=== PATIENT | female | born 1995 | race African-American/Black ===

== ENCOUNTER 2023-12-31 06:36 | Emergency (ER) | payer OTHER, SELFPAY ==
--- NOTE | ~2023-12-31 | US_ITS ---
EXAMINATION: US PELVIS CLINICAL INFORMATION: Uterine mass, last menstrual period December 11, 2023 COMPARISON: CT abdomen and pelvis December 31, 2023 TECHNIQUE: Ultrasound of the pelvis is performed using both transabdominal and transvaginal transducers along with Doppler. Transvaginal imaging is performed due to inadequate visualization transabdominally. FINDINGS: The uterus is anteverted and measures 14.8 x 10.0 x 10.0 cm. 6.9 x 7.1 x 7.2 cm heterogeneous mass along the fundal aspect of the uterus. Endometrial thickness is 11 mm, although visualization of the endometrium is limited due to large fundal mass. Small amount of free fluid. Right ovary measures 3.1 x 2.9 x 1.4 cm, volume 6.5 mL and is unremarkable. Left ovary measures 3.1 x 2.5 x 2.1 cm, volume 8.9 mL. 1.7 x 1.3 x 1.7 cm complex left ovarian cyst, possibly a corpus luteum. US/US pelvic and transvaginal IMPRESSION: 7.2 cm heterogeneous fundal mass. Differential considerations include large fibroid versus other benign or malignant mass. Gynecologic consultation and possible additional imaging with MRI recommended. This study was presented today December 31, 2023 for interpretation. Stat results provided at this time as requested by referring provider. Electronically signed by: Regina Ferraro MD 12/31/2023 12:51 PM EDT
--- NOTE | ~2023-12-31 | XR_ITS ---
EXAMINATION: XR CHEST CLINICAL INFORMATION: Near syncope COMPARISON: None available. TECHNIQUE: Frontal view of the chest was obtained. FINDINGS: No significant abnormality is noted involving the heart, lungs, mediastinum, bony thorax or soft tissues. XR/XR chest 1V IMPRESSION: Unremarkable examination. Electronically signed by: Leidy Gibson MD 12/31/2023 04:44 PM EDT
--- NOTE | ~2023-12-31 | CT_ITS ---
EXAMINATION: CT ABDOMEN AND PELVIS WITH CONTRAST CLINICAL INFORMATION: Abdominal pain COMPARISON: None available. TECHNIQUE: Multidetector volumetric images were obtained from the superior aspect of the liver through the pubic symphysis following administration 85 mL of Omnipaque 350 intravenous contrast. Sagittal and coronal reformatted images were obtained on the technologist's workstation. Oral contrast: No This CT examination was performed using dose optimization techniques as appropriate, variously including the following: *Automated exposure control *Adjustment of mA and/or kV according to patient size (this includes techniques or standardized protocols for targeted exams where dose is matched to indication/reason for exam; i.e. extremities or head) *Use of iterative reconstruction technique DLP: 739 mGy-cm FINDINGS: LUNG BASES: The visualized lung bases are unremarkable. LIVER, GALLBLADDER, AND BILIARY TREE: There is a 3 mm too small to characterize focus in the anterior right lobe of the liver. It is probably a tiny cyst. Liver otherwise unremarkable. No suspicious masses. No intrahepatic biliary dilatation. The gallbladder is unremarkable with no evidence of radiopaque gallstones, gallbladder wall thickening, or obvious pericholecystic inflammatory changes. PANCREAS: Unremarkable. SPLEEN: Unremarkable. ADRENAL GLANDS: Unremarkable. KIDNEYS AND URETERS: The kidneys are normal in size, shape, and attenuation. No hydronephrosis, hydroureter, or calculi seen. No perinephric stranding. BLADDER: Unremarkable. GASTROINTESTINAL TRACT: No bowel obstruction or right or left lower quadrant inflammatory change. The vermiform appendix is not seen. ABDOMINAL WALL: No significant hernia is appreciated. LYMPH NODES: Normal. VASCULAR: Unremarkable. PELVIC VISCERA: Abnormal. The uterus is abnormal. There is a mixed density fundal mass filling the endometrial cavity, at 8 x 6.5 cm. This needs to be further evaluated. Neoplasm needs to be excluded although a large degenerated necrotic fibroid could have a similar appearance. BOTTLER evaluation is advised. There is trace fluid in the cul-de-sac. Adnexal regions unremarkable. OSSEOUS STRUCTURES: Unremarkable. CT/CT abdomen pelvis w IV con IMPRESSION: Abnormal uterus. Large endometrial mass. BOTTLER evaluation is advised. Fleischner guidelines were followed. Electronically signed by: Natanael Guerra MD 12/31/2023 09:50 AM EDT
[2023-12-31 06:48] VITALS: BP 129/73; PULSE 121; RESP 16; TEMP 36.4; O2SAT 98; BMI 30.4
--- NOTE | 2023-12-31 06:56 | ED_ITS ---
HPI - General Adult General Chief complaint: Abdominal Pain Stated complaint: multiple complaints Time Seen by Provider: 12/31/23 06:41 Source: patient Mode of arrival: ambulatory Limitations: no limitations History of Present Illness ED Provider: Nancy Espino PA-C HPI narrative: Patient is a 28 year old assigned female at with no reported medical history presenting to the emergency department today with lower abdominal pain. Patient states that over the last 4 days she has had lower abdominal pain. Patient states that her LMP was 12/11/2023 and was normal. Patient states that yesterday she had a moment of feeling like she was going to pass out. Patient denies any vaginal bleeding, vaginal discharge, dizziness, lightheadedness, abdominal pain, nausea, vomiting, fever, chills, blurry vision, double vision, loss of vision, chest pain, difficulty breathing, shortness of breath, back pain, night sweats, pain with urination, increased urinary frequency, increased urinary urgency, blood in her urine or stool, syncope, recent trauma or falls, bowel incontinence, bladder incontinence, or any other complaints at this time. Onset (ago): day(s) Relieving factors: none Exacerbating factors: none Associated symptoms: denies other symptoms Treatments prior to arrival: none Related Data Previous Rx's ?Medication ?Instructions ?Recorded doxycycline hyclate 100 mg tablet 100 mg PO BID 7 days #14 tabs 12/31/23 fluconazole 150 mg tablet 150 mg PO Q3D 1 dose #1 tab 12/31/23 metronidazole 500 mg tablet 500 mg PO BID 7 days #14 tabs 12/31/23 Allergies Allergy/AdvReac Type Severity Reaction Status Date / Time No Known Allergies Allergy Verified 12/31/23 06:51 Review of Systems 2 Constitutional: Constitutional: Reports no additional constitutional complaints, Denies chills, Denies fever(s) and Denies night sweats Eyes: Eyes: Reports no additional eye complaints, Denies blurry vision, Denies change in vision, Denies diplopia, Denies eye discharge, Denies loss of vision and Denies eye pain ENT: Denies dizziness Cardiovascular: Cardiovascular: Reports no additional cardiovascular complaints, Denies chest pain, Denies lightheadedness, Denies Loss of Consciousness and Denies dyspnea Respiratory: Respiratory: Reports no additional respiratory complaints and Denies dyspnea Gastrointestinal: Gastrointestinal: Reports no additional gastrointestinal complaints, Reports abdominal pain, Denies melena, Denies hematochezia, Denies change in bowel habits and Denies change in stool character Genitourinary: Genitourinary: Denies hematuria, Denies urinary frequency, Denies dysuria, Denies urinary incontinence, Denies urinary hesitancy and Denies urinary urgency Musculoskeletal: Musculoskeletal: Reports no additional musculoskeletal complaints, Denies numbness and Denies tingling Neurologic: Denies dizziness, Denies loss of vision, Denies numbness and Denies tingling Comments: near syncope Psychiatric: Psychiatric: Reports no additional psychiatric complaints Endocrine: Endocrine: Reports no additional endocrine complaints Hematologic/Lymphatic: Hematologic/Lymphatic: Reports no additional hematologic/lymphatic complaints Allergic/Immunologic: Allergic/Immunologic: Reports no additional allergic/immunologic complaints PMFSH Past Medical History Attestation statement: The following information was validated with the patient. Source: old records reviewed and nursing notes reviewed Physical Exam ED Vital Signs: Vital Signs - 24 hr 12/31/23 10:29 12/31/23 11:47 12/31/23 12:00 Temperature 100.4 F 98.3 F 98.8 F Pulse Rate 108 H 102 H 101 H Respiratory Rate 18 16 12 Blood Pressure 120/80 114/63 100/57 L Pulse Oximetry 99 100 99 Oxygen Delivery Method Room Air Room Air Room Air 12/31/23 14:31 12/31/23 14:57 Temperature 98.3 F 98.3 F Pulse Rate 112 H 112 H Respiratory Rate 14 14 Blood Pressure 119/71 119/71 Pulse Oximetry 99 99 Oxygen Delivery Method Room Air Room Air BMI result Body Mass Index 30.4 Const General: cooperative, no acute distress, alert and awake Nutritional Appearance: well nourished Orientation/consciousness: patient oriented x3 Limitations: no limitations [facility] Head: Yes normal to inspection and Yes atraumatic Ears: hearing grossly normal bilaterally and external ears normal General nose exam: Normal external nose present, no nasal discharge noted and no epistaxis Face and sinus: Yes normal facial exam, No abrasion and No laceration Mouth: Normal oral and palatal mucosa present, no drooling and no muffled voice Eyes General: appearance normal, both eyes and all related structures Periorbital: periorbital findings normal Eyelids: Yes eyelids normal Conjunctivae: conjunctivae normal Pupils: Equal, round and reactive pupils present EOM: EOMs intact bilaterally Neck Neck: Yes normal visual inspection, Yes full ROM and Yes no lymphadenopathy Chest Chest palpation & inspection: normal inspection of the chest Resp Effort & Inspection: normal respiratory effort and able to speak in complete sentences GI Inspection: Yes normal to inspection Neuro General: patient oriented x3 and moves all extremities Cranial nerves: Yes Equal, round and reactive pupils present Cognition (Neuro): normal cognition Extrem General: Yes normal to inspection, Yes full ROM and Yes capillary refill normal Psych Appearance: grossly normal Mental Status: mental status grossly normal Affect: normal affect Attitude: cooperative Thought process: Normal thought process present Thought content: Normal thought content present Insight: Good insight present (Psych) Medications Administered Discontinued Medications Generic Name Dose Route Start Last Admin Trade Name Freq PRN Reason Stop Dose Admin Doxycycline Monohydrate 100 mg 12/31/23 13:42 12/31/23 14:29 Doxycycline Monohydrate 100 Mg Capsule PO 12/31/23 13:43 100 mg ONCE ONE Administration Fluconazole 150 mg 12/31/23 13:42 12/31/23 14:29 Fluconazole 150 Mg Tablet PO 12/31/23 13:43 150 mg ONCE ONE Administration Sodium Chloride 1,000 mls @ 999 mls/hr 12/31/23 07:15 12/31/23 09:33 Ns IV 12/31/23 08:15 Infused .Q1H1M EUNICE Infusion Sodium Chloride 1,000 mls @ 999 mls/hr 12/31/23 10:30 12/31/23 12:35 Ns IV 12/31/23 11:30 Infused .Q1H1M EUNICE Infusion Ceftriaxone Sodium 1 gm/ 50 mls @ 100 mls/hr 12/31/23 13:42 12/31/23 14:29 Sodium Chloride IV 12/31/23 14:11 100 mls/hr ONCE ONE Administration Iohexol 100 ml 12/31/23 08:51 12/31/23 08:52 Iohexol 350 Mg/Ml 100 Ml Infus..Btl IV 12/31/23 08:52 85 ml ONCE ONE Administration Ketorolac Tromethamine 15 mg 12/31/23 10:30 12/31/23 10:37 Ketorolac Tromethamine 15 Mg/Ml Vial IVPUSH 12/31/23 10:31 15 mg ONCE ONE Administration Metronidazole 500 mg 12/31/23 13:42 12/31/23 14:29 Metronidazole 500 Mg Tablet PO 12/31/23 13:43 500 mg ONCE ONE Administration Morphine Sulfate 4 mg 12/31/23 07:03 12/31/23 07:27 Morphine Sulfate 4 Mg/Ml Cartridge IVPUSH 12/31/23 07:04 4 mg ONCE ONE Administration Protocol Ondansetron HCl 4 mg 12/31/23 07:03 12/31/23 07:27 Ondansetron Hcl 4 Mg/2 Ml Vial IVPUSH 12/31/23 07:04 4 mg ONCE ONE Administration Medical Decision Making Medical Decision Making [facility] Narrative: Patient is a 28 year old assigned female at with no reported medical history presenting to the emergency department today with abdominal pain and feeling as though she was going to pass out. Patient's physical exam was unremarkable. Patient's blood work showed an elevated WBC count of 16.6 but were otherwise unremarkable. Patient's urine showed no acute process. Patient's EKG was unremarkable. Patient's chest x-ray showed no acute process. Patient's CT abd/pelvis showed a large mass vs. fibroid in the uterus. I obtained an ultrasound that re-demonstrated the uterine mass and identified it as a mass vs. fibroid. Patient's clinical presentation is not consistent with sepsis (@1530). I consulted with Dr. Espinal who came and examined the patient. He recommended out patient follow up and treating for PID given the patient's clinical presentation and work up. I explained my physical exam findings as well as all test results to the patient. I answered all questions asked by the patient. I stressed the importance of the patient taking her medication as directed (either prescribed or as the over the counter packaging recommends). I stressed the importance of the patient following up with her primary care provider and an OBGYN. I stressed the importance of the patient returning to the emergency department immediately if her symptoms were to worsen or if she were to develop any dizziness, shortness of breath, difficulty breathing, chest pain, blurry vision, loss of vision, nausea, vomiting, abdominal pain, fever, chills, back pain, or any other complaints. Patient verbalized agreement and understanding with this treatment plan and discharge. Differential Diagnosis Differential Diagnoses: The differential diagnosis associated with the presentation includes Abdominal pain PID Uterine mass Admission/Observation Consideration of admission/observation: Escalation of care including admission/observation considered Patient would have been admitted to the hospital had her work up had any findings where hospital admission was appropriate and her clinical presentation warranted hospital admission. Consult Healthcare Provider Management of the patient was discussed with: Advertising Sales Executive (consulted with Dr. Espinal as noted in the MDM Rationale portion of the note. ) Lab Data [facility] Lab Attestation statement: I reviewed the patient's lab results. My interpretation of these results are in the MDM Rationale portion of this note. 12/31/23 07:26 12/31/23 07:26 Labs: Lab Results 12/31/23 12/31/23 12/31/23 Range/Units 07:26 07:33 08:57 WBC 16.6 H (4.8-10.8) X10*3/uL RBC 4.54 (4.20-5.50) X10*6/uL Hgb 12.3 (12.0-16.0) g/dl Hct 37.4 (37.0-47.0) % MCV 82.4 (80.0-98.0) fL MCH 27.1 (27.0-33.0) pg MCHC 32.9 (31.0-35.0) g/dl RDW 13.9 (11.0-16.0) % Plt Count 196 (160-400) X10*3/uL MPV 10.1 (9.4-12.3) fL Immature Gran % (Auto) 0.5 H (0.0-0.4) % Neut % (Auto) 80.1 H (45-73) % Lymph % (Auto) 7.2 L (20-40) % [place] % (Auto) 12.0 H (2-11) % Eos % (Auto) 0.1 (0-4) % Baso % (Auto) 0.1 (0-2) % Lymph # (Auto) 1.2 (1.2-4.9) X10*3/uL [place] # (Auto) 2.0 H (0.1-1.2) X10*3/uL Eos # (Auto) 0.0 (0.0-0.4) X10*3/uL Baso # (Auto) 0.0 (0.0-0.2) X10*3/uL Abs Immat Gran (auto) 0.09 H (0.00-0.03) X10*3/uL Absolute Neuts (auto) 13.3 H (2.0-8.3) x10*3/uL Absolute Nucleated RBC 0.000 (0.0-0.012) X10*3/uL Nucleated RBC % (auto) 0.0 (0.0-0.2) /100WBC Smear Tech's Comments VERIFIED Sodium 136 (135-145) mmol/L Potassium 3.8 (3.3-5.1) mmol/L Chloride 105 (96-108) mmol/L Carbon Dioxide 23 (22-29) mmol/L Anion Gap 12 (12-20) BUN 6 L (9-16) mg/dL Creatinine 0.76 (0.5-1.4) mg/dL Estim Creat Clear Calc 129.8 Estimated GFR > 60 Random Glucose 108 (60-115) mg/dL Calcium 8.9 (8.4-10.2) mg/dL Total Bilirubin 0.5 (0.0-1.0) mg/dL AST 24 (5-31) U/L ALT 15 (0-31) U/L Alkaline Phosphatase 63 (39-117) U/L Total Protein 7.5 (6.5-8.0) g/dL Albumin 3.9 (3.5-5.0) g/dL Beta HCG, Quant < 2 mIU/mL Urine Color Yellow Urine Appearance Clear Urine pH 7.5 (5.0-9.0) Ur Specific [place] >= 1.030 H (1.005-1.025) Urine Protein Trace (Neg-Trace) mg/dL Urine Glucose (UA) Negative (Negative) mg/dL Urine Ketones Negative (Negative) mg/dL Urine Blood Negative (Negative) Urine Nitrite Negative (Negative) Ur Leukocyte Esterase Negative (Negative) T.pallidum Ab (EIA) (Nonreactive) Chlam trachomat DNA PCR (Not Detect.) COVID-19 (RYDER) Negative (Negative) COVID-19 Clin Com See Note Hepatitis A IgM Ab (Nonreactive) Hep Bs Antigen (Negative) Hep Bs Antibody (Nonreactive) Hep B Core Total Ab (Nonreactive) Hepatitis C Ab (EIA) (Nonreactive) HIV 1&2 Ab/P24 Ag 4thGn (Nonreactive) Influenza Type A (MITCHELL) Negative (Negative) Influenza Type B (MITCHELL) Negative (Negative) Influenza A & B Note See Note N.gonorrhoeae DNA (PCR) (Not Detect.) T. vaginalis (PCR) (Not Detect) Bact Vaginosis (PCR) (Negative) C. krusei/glabrata (PCR) (Not Detect) Laurence group (PCR) (Not Detect) 12/31/23 Range/Units 14:37 WBC (4.8-10.8) X10*3/uL RBC (4.20-5.50) X10*6/uL Hgb (12.0-16.0) g/dl Hct (37.0-47.0) % MCV (80.0-98.0) fL MCH (27.0-33.0) pg MCHC (31.0-35.0) g/dl RDW (11.0-16.0) % Plt Count (160-400) X10*3/uL MPV (9.4-12.3) fL Immature Gran % (Auto) (0.0-0.4) % Neut % (Auto) (45-73) % Lymph % (Auto) (20-40) % [place] % (Auto) (2-11) % Eos % (Auto) (0-4) % Baso % (Auto) (0-2) % Lymph # (Auto) (1.2-4.9) X10*3/uL [place] # (Auto) (0.1-1.2) X10*3/uL Eos # (Auto) (0.0-0.4) X10*3/uL Baso # (Auto) (0.0-0.2) X10*3/uL Abs Immat Gran (auto) (0.00-0.03) X10*3/uL Absolute Neuts (auto) (2.0-8.3) x10*3/uL Absolute Nucleated RBC (0.0-0.012) X10*3/uL Nucleated RBC % (auto) (0.0-0.2) /100WBC Smear Tech's Comments Sodium (135-145) mmol/L Potassium (3.3-5.1) mmol/L Chloride (96-108) mmol/L Carbon Dioxide (22-29) mmol/L Anion Gap (12-20) BUN (9-16) mg/dL Creatinine (0.5-1.4) mg/dL Estim Creat Clear Calc Estimated GFR Random Glucose (60-115) mg/dL Calcium (8.4-10.2) mg/dL Total Bilirubin (0.0-1.0) mg/dL AST (5-31) U/L ALT (0-31) U/L Alkaline Phosphatase (39-117) U/L Total Protein (6.5-8.0) g/dL Albumin (3.5-5.0) g/dL Beta HCG, Quant mIU/mL Urine Color Urine Appearance Urine pH (5.0-9.0) Ur Specific [place] (1.005-1.025) Urine Protein (Neg-Trace) mg/dL Urine Glucose (UA) (Negative) mg/dL Urine Ketones (Negative) mg/dL Urine Blood (Negative) Urine Nitrite (Negative) Ur Leukocyte Esterase (Negative) T.pallidum Ab (EIA) Nonreactive (Nonreactive) Chlam trachomat DNA PCR NOT DETECTED (Not Detect.) COVID-19 (RYDER) (Negative) COVID-19 Clin Com Hepatitis A IgM Ab Nonreactive (Nonreactive) Hep Bs Antigen Negative (Negative) Hep Bs Antibody REACTIVE (Nonreactive) Hep B Core Total Ab Nonreactive (Nonreactive) Hepatitis C Ab (EIA) Nonreactive (Nonreactive) HIV 1&2 Ab/P24 Ag 4thGn Nonreactive (Nonreactive) Influenza Type A (MITCHELL) (Negative) Influenza Type B (MITCHELL) (Negative) Influenza A & B Note N.gonorrhoeae DNA (PCR) NOT DETECTED (Not Detect.) T. vaginalis (PCR) NOT DETECTED (Not Detect) Bact Vaginosis (PCR) NEGATIVE (Negative) C. krusei/glabrata (PCR) NOT DETECTED (Not Detect) Laurence group (PCR) DETECTED A (Not Detect) Independent Interpretation I performed an independent interpretation of an: EKG, Plain X-Ray, Ultrasound and CT Scan Interpretation: My interpretation is in agreement with the radiologist's impression of these imaging studies. L EXAMINATION: CT ABDOMEN AND PELVIS WITH CONTRAST CLINICAL INFORMATION: Abdominal pain COMPARISON: None available. TECHNIQUE: Multidetector volumetric images were obtained from the superior aspect of the liver through the pubic symphysis following administration 85 mL of Omnipaque 350 intravenous contrast. Sagittal and coronal reformatted images were obtained on the technologist's workstation. Oral contrast: No This CT examination was performed using dose optimization techniques as appropriate, variously including the following: *Automated exposure control *Adjustment of mA and/or kV according to patient size (this includes techniques or standardized protocols for targeted exams where dose is matched to indication/reason for exam; i.e. extremities or head) *Use of iterative reconstruction technique DLP: 739 mGy-cm FINDINGS: LUNG BASES: The visualized lung bases are unremarkable. LIVER, GALLBLADDER, AND BILIARY TREE: There is a 3 mm too small to characterize focus in the anterior right lobe of the liver. It is probably a tiny cyst. Liver otherwise unremarkable. No suspicious masses. No intrahepatic biliary dilatation. The gallbladder is unremarkable with no evidence of radiopaque gallstones, gallbladder wall thickening, or obvious pericholecystic inflammatory changes. PANCREAS: Unremarkable. SPLEEN: Unremarkable. ADRENAL GLANDS: Unremarkable. KIDNEYS AND URETERS: The kidneys are normal in size, shape, and attenuation. No hydronephrosis, hydroureter, or calculi seen. No perinephric stranding. BLADDER: Unremarkable. GASTROINTESTINAL TRACT: No bowel obstruction or right or left lower quadrant inflammatory change. The vermiform appendix is not seen. ABDOMINAL WALL: No significant hernia is appreciated. LYMPH NODES: Normal. VASCULAR: Unremarkable. PELVIC VISCERA: Abnormal. The uterus is abnormal. There is a mixed density fundal mass filling the endometrial cavity, at 8 x 6.5 cm. This needs to be further evaluated. Neoplasm needs to be excluded although a large degenerated necrotic fibroid could have a similar appearance. CUT OUT PRESS OPERATOR evaluation is advised. There is trace fluid in the cul-de-sac. Adnexal regions unremarkable. OSSEOUS STRUCTURES: Unremarkable. CT/CT abdomen pelvis w IV con IMPRESSION: Abnormal uterus. Large endometrial mass. CUT OUT PRESS OPERATOR evaluation is advised. Fleischner guidelines were followed. Electronically signed by: Natanael Guerra MD 12/31/2023 09:50 AM EDT Dictated By: Natanael Guerra MD Signed By: Electronically signed by Natanael Guerra MD 12/31/23 0950 L EXAMINATION: US PELVIS CLINICAL INFORMATION: Uterine mass, last menstrual period December 11, 2023 COMPARISON: CT abdomen and pelvis December 31, 2023 TECHNIQUE: Ultrasound of the pelvis is performed using both transabdominal and transvaginal transducers along with Doppler. Transvaginal imaging is performed due to inadequate visualization transabdominally. FINDINGS: The uterus is anteverted and measures 14.8 x 10.0 x 10.0 cm. 6.9 x 7.1 x 7.2 cm heterogeneous mass along the fundal aspect of the uterus. Endometrial thickness is 11 mm, although visualization of the endometrium is limited due to large fundal mass. Small amount of free fluid. Right ovary measures 3.1 x 2.9 x 1.4 cm, volume 6.5 mL and is unremarkable. Left ovary measures 3.1 x 2.5 x 2.1 cm, volume 8.9 mL. 1.7 x 1.3 x 1.7 cm complex left ovarian cyst, possibly a corpus luteum. US/US pelvic and transvaginal IMPRESSION: 7.2 cm heterogeneous fundal mass. Differential considerations include large fibroid versus other benign or malignant mass. Gynecologic consultation and possible additional imaging with MRI recommended. This study was presented today December 31, 2023 for interpretation. Stat results provided at this time as requested by referring provider. Electronically signed by: Regina Ferraro MD 12/31/2023 12:51 PM EDT RP Dictated By: Regina Ferraro MD Signed By: Electronically signed by Regina Ferraro MD 12/31/23 1251 L EXAMINATION: XR CHEST CLINICAL INFORMATION: Near syncope COMPARISON: None available. TECHNIQUE: Frontal view of the chest was obtained. FINDINGS: No significant abnormality is noted involving the heart, lungs, mediastinum, bony thorax or soft tissues. XR/XR chest 1V IMPRESSION: Unremarkable examination. Electronically signed by: Leidy Gibson MD 12/31/2023 04:44 PM EDT RP Dictated By: Leidy Gibson MD Signed By: Electronically signed by Leidy Gibson MD 12/31/23 1644 L Vent. Rate: 104 BPM Atrial Rate: 104 BPM P-R Int: 134 ms QRS Dur: 070 ms QT Int: 314 ms P-R-T Axes:: 051 030 015 degrees QTc Int: 412 ms Sinus tachycardia Otherwise normal ECG No previous ECGs available Electronically Signed By:GEORGIE HERNANDEZ Dictated By: Georgie Darby DO Signed By: Electronically signed by Georgie Darby DO 12/31/23 1608 Radiology Impression Discussion of test interpretation with radiology: I have reviewed the radiologist's reading. Prescription Management I considered prescription management with: Antibiotic (patient prescribed antibiotic for PID) Critical Care Time Critical Care Time Critical Care Time: Yes Total Critical Care Time: 47 Attestation: I spent 47 minutes of Critical Care Time with this patient. This does not include time spent on separately reported billable procedures. Discharge Plan Discharge Clinical Impression: Uterine mass, PID (acute pelvic inflammatory disease) Patient Disposition: Home, Self-Care Instructions: Pelvic Inflammatory Disease (DC) Additional Instructions: Take your antibiotics as prescribed. Follow up with your primary care provider and an OBGYN (for further work up of your uterine mass). Return to the emergency department immediately if your symptoms worsen or if you develop any dizziness, shortness of breath, difficulty breathing, chest pain, blurry vision, loss of vision, nausea, vomiting, abdominal pain, fever, chills, back pain, or any other complaints. APPOINTMENT WITH DR. ESPINAL: [address] [facility] [address] (5TH FLOOR) Saturday AT 1PM [phone] Prescriptions: New fluconazole 150 mg tablet 150 mg PO Q3D Qty: 1 0RF Rx Instructions: Take on 01/03/2024 doxycycline hyclate 100 mg tablet 100 mg PO BID 7 Days Qty: 14 0RF metronidazole 500 mg tablet 500 mg PO BID 7 Days Qty: 14 0RF Referrals: [facility] [place] [facility] [Provider Group] (Call to establish and follow up with a primary care provider. If you already have a primary care provider, please follow up with them.) [facility] [place] Primary Care, [place] [Provider Group] (Call to establish and follow up with a primary care provider. If you already have a primary care provider, please follow up with them.) [facility] [place] Primary [facility],[place] [Provider Group] (Call to establish and follow up with a primary care provider. If you already have a primary care provider, please follow up with them.) David Espinal MD [Physician] - (Call to establish and follow up with an OBGYN. ) Interventions: ED Discharge Assessment Last Done: 12/31/23 14:57 Discharge Date/Time: 12/31/23 14:57 Print Language: Israeli
[2023-12-31] MEDS: ondansetron HCL 4 MG/2 ML VIAL IVPUSH (07:27)
[2023-12-31] MEDS: Morphine Sulfate 4 MG/ML CARTRIDGE IVPUSH (07:27)
[2023-12-31] MEDS: 0.9 % Sodium Chloride 1,000 ML 999 ML IV ×2 (07:27→10:37)
[2023-12-31 07:34] LABS: Basophils Percent Auto 0.1 % (0-2); Eosinophils Percent Auto 0.1 % (0-4); Hematocrit 37.4 % (37.0-47.0); Hemoglobin 12.3 g/dl (12.0-16.0); Imm Gran Abs Auto 0.09 X10*3/uL (0.00-0.03); Imm Gran Pct Auto 0.5 % (0.0-0.4); Lymphocytes Absolute Auto 1.2 X10*3/uL (1.2-4.9); Lymphocytes Percent Auto 7.2 % (20-40); MANUAL DIFF FLAG SCAN; Mean Corpuscular HGB Conc 32.9 g/dl (31.0-35.0); Mean Corpuscular Hemoglobin 27.1 pg (27.0-33.0); Mean Corpuscular Volume 82.4 fL (80.0-98.0); Mean Platelet Volume 10.1 fL (9.4-12.3); Neutrophils Absolute Auto 13.3 x10*3/uL (2.0-8.3); Neutrophils Percent Auto 80.1 % (45-73); Platelet Count 196 X10*3/uL (160-400); Red Blood Count 4.54 X10*6/uL (4.20-5.50); Red Cell Distribution Width 13.9 % (11.0-16.0); SCAN SMEAR FLAG 1; White Blood Count 16.6 X10*3/uL (4.8-10.8)
[2023-12-31 07:51] LABS: Alanine Aminotransferase 15 U/L (0-31); Albumin Level 3.9 g/dL (3.5-5.0); Alkaline Phosphatase 63 U/L (39-117); Anion Gap 12 (12-20); Aspartate Amino Transferase 24 U/L (5-31); Bilirubin Total 0.5 mg/dL (0.0-1.0); Blood Urea Nitrogen 6 mg/dL (9-16); Calcium 8.9 mg/dL (8.4-10.2); Carbon Dioxide 23 mmol/L (22-29); Chloride 105 mmol/L (96-108); Creatinine Clr Calc Pharmacy 129.8; Estimated Glomerular Filt Rate > 60; Glucose Random 108 mg/dL (60-115); Potassium 3.8 mmol/L (3.3-5.1); Sodium 136 mmol/L (135-145); Total Protein 7.5 g/dL (6.5-8.0)
[2023-12-31 08:00] LABS: HCG Quantitative < 2 mIU/mL
[2023-12-31 08:03] LABS: SLIDE REVIEW VERIFIED
[2023-12-31 08:07] LABS: COVID-19 Test Negative (Negative); IDNOW Serial# 08D9AD1C
[2023-12-31 08:08] LABS: IDNOW Serial# 152EDE1D
[2023-12-31 08:09] LABS: Influenza A Negative (Negative); Influenza B2 Negative (Negative)
[2023-12-31] MEDS: iohexoL 350 MG/ML 100 ML INFUS..BTL IV (08:52)
[2023-12-31 09:10] LABS: Appearance Urine Clear; Color Urine Yellow; Glucose Urine UA Negative (Negative); Leukocyte Esterase Urine Negative (Negative); Nitrite Urine Negative (Negative); PH 7.5 (5.0-9.0); Specific Gravity - Urine >= 1.030 (1.005-1.025); Urine Blood Negative (Negative); Urine Ketones Negative (Negative); Urine Protein Trace mg/dL (Neg-Trace)
[2023-12-31 10:29] VITALS: BP 120/80; PULSE 108; RESP 18; TEMP 38; O2SAT 99
[2023-12-31] MEDS: Ketorolac Tromethamine 15 MG/ML VIAL IVPUSH (10:37)
--- NOTE | 2023-12-31 10:39 | PC.NURSE ---
patient noted to have fever, provider notified, medicated per MAR. patient describes her pain to be in her lower abd, 8/10 and comes and goes, patient also endorses pain in her butt, described as sharp.
[2023-12-31 11:47] VITALS: BP 114/63; PULSE 102; RESP 16; TEMP 36.8; O2SAT 100
--- NOTE | 2023-12-31 11:56 | PC.NURSE ---
patient now afebrile, has pain control leveled a 3/10. patient resting quietly in ED bed, respirations equal and unlabored, skin dry and intact. patient awaiting u/s results
[2023-12-31 12:00] VITALS: BP 100/57; PULSE 101; RESP 12; TEMP 37.1; O2SAT 99
--- NOTE | 2023-12-31 13:07 | P.CONOB_ITS ---
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 The patient gives a history of a new recent sexual partner. HCG done in the emergency room was less than 2, H&H within normal, UA within normal, CT scan and pelvic ultrasound done a see results cc:: CC: OB [facility] Social History Social History Advance Directives: No Advance Directives Information Provided: Yes Do you have a plan to hurt others: No Plan Patient : No Meds Allergies Allergy/AdvReac Type Severity Reaction Status Date / Time No Known Allergies Allergy Verified 12/31/23 06:51 CERTIFIED FORKLIFT OPERATOR Physical Exam Vitals Vital signs: Temp Pulse Resp BP Pulse Ox O2 Del Method 98.8 F 101 H 12 100/57 L 99 Room Air 12/31/23 12:00 12/31/23 12:00 12/31/23 12:00 12/31/23 12:00 12/31/23 12:00 12/31/23 12:00 BMI result Body Mass Index 30.4 Abdomen Auscultation/Inspection/Palpation: Soft and Tenderness (Mild lower pelvic tenderness no guarding and no rebound) Female Genitalia (Pelvic) Vagina: Nontender Cervix: Cervical motion tenderness Uterus: Enlarged and Tender Adnexa/Parametria: Adnexal Tenderness: Bilateral CERTIFIED FORKLIFT OPERATOR - Results Labs 12/31/23 07:26 12/31/23 07:26 Labs: Short CBC 12/31/23 Range/Units 07:26 WBC 16.6 H (4.8-10.8) X10*3/uL Hgb 12.3 (12.0-16.0) g/dl Hct 37.4 (37.0-47.0) % Plt Count 196 (160-400) X10*3/uL BMP 12/31/23 07:26 Sodium 136 Potassium 3.8 Chloride 105 Carbon Dioxide 23 BUN 6 L Creatinine 0.76 Calcium 8.9 Liver Function 12/31/23 Range/Units 07:26 Total Bilirubin 0.5 (0.0-1.0) mg/dL AST 24 (5-31) U/L ALT 15 (0-31) U/L Alkaline Phosphatase 63 (39-117) U/L Albumin 3.9 (3.5-5.0) g/dL Urine 12/31/23 Range/Units 08:57 Urine Color Yellow Urine Appearance Clear Urine pH 7.5 (5.0-9.0) Ur Specific [place] >= 1.030 H (1.005-1.025) Urine Protein Trace (Neg-Trace) mg/dL Urine Glucose (UA) Negative (Negative) mg/dL Imaging CT scan - pelvis: Radiologist's impression: ITS Impressions Abdomen/Pelvis CT 12/31/23 08:32 IMPRESSION: Abnormal uterus. Large endometrial mass. CERTIFIED FORKLIFT OPERATOR evaluation is advised. Fleischner guidelines were followed. Electronically signed by: Natanael Guerra MD 12/31/2023 09:50 AM EDT RP Pelvic/Transvag US 12/31/23 10:55 IMPRESSION: 7.2 cm heterogeneous fundal mass. Differential considerations include large fibroid versus other benign or malignant mass. Gynecologic consultation and possible additional imaging with MRI recommended. This study was presented today December 31, 2023 for interpretation. Stat results provided at this time as requested by referring provider. Electronically signed by: Regina Ferraro MD 12/31/2023 12:51 PM EDT RP Assessment and Plan (1) Uterine mass: Status: Acute Discussed with the patient differential diagnosis of her uterine/endometrial mass findings on CT scan and ultrasound with evidence of necrosis including but not limited to uterine myoma, Nico sarcoma, endometrial malignancy and others, recommended follow-up in the office for endometrial biopsy and MRI imaging for more evaluation (2) PID (acute pelvic inflammatory disease): Status: Acute Urine test done in the emergency room was negative. GC and chlamydia with BV panel and Trichomonas taken. Recommend to AMBER Arriaza the following: STD screen including hepatitis-B surface antigen, HIV, syphilis screen, hep C antibody . Treat with [facility] outpatient regimen for PID with ceftriaxone 500 mg IM x1, doxycycline 100 mg p.o. b.i.d. with Flagyl 500 mg p.o. b.i.d. for 14 days. Instructions given the patient to call or go to emergency room in case of fever equal or above 100.4, persistent or worsening of her abdominal/pelvic pain, nausea or vomiting and to schedule a 1 week follow-up appointment
--- NOTE | 2023-12-31 13:12 | ECG_ITS ---
Test Reason : NEAR SYNCOPE Blood Pressure : / mmHG Vent. Rate : 104 BPM Atrial Rate : 104 BPM P-R Int : 134 ms QRS Dur : 070 ms QT Int : 314 ms P-R-T Axes : 051 030 015 degrees QTc Int : 412 ms Sinus tachycardia Otherwise normal ECG No previous ECGs available Referred By: Nancy Espino Electronically Signed By:GEORGIE HERNANDEZ
[2023-12-31] MEDS: Fluconazole 150 MG TABLET PO (14:29)
[2023-12-31] MEDS: cefTRIAXone sodium 1 GM in 0.9 % Sodium Chloride 50 ML IV (14:29)
[2023-12-31] MEDS: Doxycycline Monohydrate 100 MG CAPSULE PO (14:29)
[2023-12-31] MEDS: metroNIDAZOLE 500 MG TABLET PO (14:29)
[2023-12-31 14:31] VITALS: BP 119/71; PULSE 112; RESP 14; TEMP 36.8; O2SAT 99
[2023-12-31 14:57] VITALS: BP 119/71; PULSE 112; RESP 14; TEMP 36.8; O2SAT 99
[2023-12-31 16:36] LABS: Bacterial Vaginosis PCR NEGATIVE (Negative); Candida Group PCR DETECTED (Not Detect); Candida glab krusei PCR NOT DETECTED (Not Detect); Trichomonas vaginalis PCR NOT DETECTED (Not Detect)
[2023-12-31 16:43] LABS: CT PCR NOT DETECTED (Not Detect.); NG PCR NOT DETECTED (Not Detect.)
[2024-01-01 04:36] LABS: HBc Num1 0.12 S/CO (0.00-0.79); HBsAGNum1 0.21 S/CO (0.00-0.99); Hepatitis A Antibody IgM 0.23 Index (0-0.79); Hepatitis B Core Antibody Nonreactive (Nonreactive); Hepatitis B Surface Antigen Negative (Negative); Syphilis Screen Nonreactive (Nonreactive); ~HepC Num1 0.11 S/CO (0.00-0.79); ~Hepatitis A Antibody IgM Nonreactive (Nonreactive); ~Hepatitis C Antibody Nonreactive (Nonreactive)
[2024-01-01 04:58] LABS: HIV AB/AG Nonreactive (Nonreactive); HIV Num 1 0.05 S/CO (0.00-0.99); ~Hepatitis B Surface Antibody REACTIVE (Nonreactive)
== END 2023-12-31 14:57 | disposition home or self-care (01) ==
PROVIDERS: Obstetrics & Gynecology; Physician Assistant Medical; Emergency Provider Emergency Medicine Emergency Medical Services
DX: N73.0 Acute parametritis and pelvic cellulitis (principal); N85.8 Other specified noninflammatory disorders of uterus; R55 Syncope and collapse; R00.0 Tachycardia, unspecified; R10.2 Pelvic and perineal pain
CPT/HCPCS: 0352U; 36415; 71045; 74177; 76830; 76856; 80053; 81003; 84702; 85025; 86704; 86706; 86709; 86780; 86803; 87340; 87389; 87491; 87502; 87591; 87635; 93005; 96361; 96374; 96375; 99285; J0696; J1885; J2270; J2405; Q9967

== ENCOUNTER → 2023-12-31 07:08 | Outpatient (BNV) | payer OTHER, SELFPAY | PROVIDERS: Emergency Provider Emergency Medicine Emergency Medical Services; Visit Provider Obstetrics & Gynecology | DX: N85.8 Other specified noninflammatory disorders of uterus (principal); N73.0 Acute parametritis and pelvic cellulitis | CPT/HCPCS: 99283 ==

== ENCOUNTER 2024-01-03 10:27 | Emergency (ER) | payer OTHER, SELFPAY ==
[2024-01-03 10:47] VITALS: BP 118/78; PULSE 81; RESP 16; TEMP 36.7; O2SAT 100; BMI 30.6
--- NOTE | 2024-01-03 10:51 | ECG_ITS ---
Test Reason : SYNCOPE Blood Pressure : / mmHG Vent. Rate : 077 BPM Atrial Rate : 077 BPM P-R Int : 130 ms QRS Dur : 072 ms QT Int : 362 ms P-R-T Axes : 055 023 009 degrees QTc Int : 409 ms Normal sinus rhythm Normal ECG When compared with ECG of 31-DEC-2023 13:14, Heart rate has decreased Referred By: Generic ED Physician Electronically Signed By:GEOGRIE HERNANDEZ
[2024-01-03 11:12] LABS: MANUAL DIFF FLAG NO
[2024-01-03 11:15] LABS: Basophils Percent Auto 0.2 % (0-2); Eosinophils Absolute Auto 0.1 X10*3/uL (0.0-0.4); Eosinophils Percent Auto 0.8 % (0-4); Hematocrit 36.6 % (37.0-47.0); Hemoglobin 12.1 g/dl (12.0-16.0); Imm Gran Abs Auto 0.05 X10*3/uL (0.00-0.03); Imm Gran Pct Auto 0.5 % (0.0-0.4); Lymphocytes Absolute Auto 1.5 X10*3/uL (1.2-4.9); Lymphocytes Percent Auto 15.7 % (20-40); Mean Corpuscular HGB Conc 33.1 g/dl (31.0-35.0); Mean Corpuscular Hemoglobin 27.2 pg (27.0-33.0); Mean Corpuscular Volume 82.2 fL (80.0-98.0); Mean Platelet Volume 10.3 fL (9.4-12.3); Monocytes Percent Auto 11.2 % (2-11); Neutrophils Absolute Auto 6.6 x10*3/uL (2.0-8.3); Neutrophils Percent Auto 71.6 % (45-73); Platelet Count 240 X10*3/uL (160-400); Red Blood Count 4.45 X10*6/uL (4.20-5.50); Red Cell Distribution Width 13.7 % (11.0-16.0); White Blood Count 9.3 X10*3/uL (4.8-10.8)
[2024-01-03 11:33] LABS: Anion Gap 13 (12-20); Blood Urea Nitrogen 11 mg/dL (9-16); Calcium 9.4 mg/dL (8.4-10.2); Carbon Dioxide 23 mmol/L (22-29); Chloride 107 mmol/L (96-108); Creatinine Clr Calc Pharmacy 113.7; Estimated Glomerular Filt Rate > 60; Glucose Random 116 mg/dL (60-115); Potassium 4.3 mmol/L (3.3-5.1); Sodium 139 mmol/L (135-145)
[2024-01-03 11:54] LABS: COVID-19 Test Negative (Negative); IDNOW Serial# 152EDE1D
--- NOTE | 2024-01-03 12:16 | ED.GENADULT ---
HPI - General Adult General Chief complaint: Syncope Stated complaint: Syncope Time Seen by Provider: 01/03/24 12:15 Source: patient Mode of arrival: ambulatory Limitations: no limitations History of Present Illness HPI narrative: Patient is a 28-year-old female who presents emergency department for evaluation. She states that she was seen in the emergency department 3 days ago for evaluation of abdominal pain, reports she was treated with antibiotics for a pelvic infection and assist awaiting follow-up with sales development associate for uterine mass. She states that since her discharge from the emergency department her abdominal pain has resolved. However she continues to have hot and cold sweats over the past 2 days and feeling lightheaded. Today she states that she was walking in her home when she began to feel lightheaded and ultimately syncopized. She felt this occurring and she was able to herself to a sitting position floor. She denies any head strike with this. She continues to feel lightheaded. She states that she did have something to eat this morning including a slice of pizza. She denies headache, neck pain, chest pain, shortness of breath, numbness or tingling of the extremities, nausea, vomiting, symptoms, recent lower extremity redness pain or swelling. Denies personal history of DVT/PE/malignancy. Related Data Previous Rx's ?Medication ?Instructions ?Recorded doxycycline hyclate 100 mg tablet 100 mg PO BID 7 days #14 tabs 12/31/23 fluconazole 150 mg tablet 150 mg PO Q3D 1 dose #1 tab 12/31/23 metronidazole 500 mg tablet 500 mg PO BID 7 days #14 tabs 12/31/23 Allergies Allergy/AdvReac Type Severity Reaction Status Date / Time No Known Allergies Allergy Verified 01/03/24 10:50 Review of Systems Review of Systems: Yes all other systems are reviewed and are negative [facility] Past Medical History Attestation statement: The following information was validated with the patient. Source: old records reviewed Social History Social History Advance Directives: No Advance Directives Information Provided: No Physical Exam ED Vital Signs: Vital Signs - 24 hr 01/03/24 10:47 01/03/24 12:23 01/03/24 12:27 Temperature 98.0 F 97.7 F Pulse Rate 81 84 84 Respiratory Rate 16 16 Blood Pressure 118/78 107/68 107/68 Pulse Oximetry 100 98 Oxygen Delivery Method Room Air Room Air 01/03/24 12:28 01/03/24 12:29 Temperature Pulse Rate 94 84 Respiratory Rate Blood Pressure 120/84 108/70 Pulse Oximetry Oxygen Delivery Method BMI result Body Mass Index 30.6 Appearance: Alert.?Oriented to person, place and time. No acute distress.?Normal affect. Eyes: Pupils equal, round and reactive to light.? ENT: Pharynx normal.?? Neck: Normal inspection.? Neck supple.?? CVS: Heart sounds normal. Normal heart rate and rhythm.? Pulses normal.?? Respiratory: No respiratory distress.? Lung sounds clear to auscultation bilaterally?? Abdomen: Soft and non-tender. Normoactive bowel sounds. Skin: Skin warm and dry.? Normal skin color.? Extremities: No lower extremity edema.? No calf ttp? Neuro: Moves all extremities spontaneously. Sensation intact bilaterally. CN II-XII intact. No focal neuro deficits. Ambulates with normal steady gait. Medical Decision Making Medical Decision Making MDM Narrative: Patient is a 28-year-old female with no reported past medical history presenting to emergency department for evaluation of a syncopal episode. On review of medical record patient was seen in the emergency department 3 days ago; 12/31/2023 presented for lower abdominal pain and a near syncopal sensation, found to have leukocytosis, and a you during mass versus fibroid, was evaluated by sales development associate at that time with recommendation for treatment of PID and outpatient follow-up for endometrial biopsy and MRI. She had prodromal lightheadedness, no worrisome preceding symptoms such as chest pain, shortness of breath, palpitations, or neurological deficit, no significant past medical history, no family history of sudden cardiac or cardiomyopathy. On evaluation she appears overall well, nontoxic. She is afebrile without tachycardia tachypnea or hypoxia. She has no focal neurological deficits, no associated headache vertigo or diplopia to suggest SAH, CVA, TIA. PERC negative unlikely pulmonary embolism. No history of arrhythmias, EKG revealing normal sinus rhythm no ischemia. High sensitive troponin below detectable limits, unlikely ACS. She had a negative quantitative hCG 3 days ago and pelvic ultrasound without evidence of ectopic , will be very unlikely for this to be secondary to so at this time however obtained repeat hCG today to exclude and is negative. No active bleeding. Blood counts are stable without anemia, no leukocytosis or thrombocytopenia. No electrolyte derangement. No MELONIE. She is not hypotensive, nor does she have orthostatic hypotension. Differential Diagnosis Differential Diagnoses: The differential diagnosis associated with the presentation includes (See narrative above) Admission/Observation Consideration of admission/observation: Escalation of care including admission/observation considered (See narrative above) Lab Data MDM Lab Attestation statement: I reviewed the patient's lab results. (See narrative above) 01/03/24 11:00 01/03/24 11:00 Labs: Lab Results 01/03/24 Range/Units 11:00 WBC 9.3 (4.8-10.8) X10*3/uL RBC 4.45 (4.20-5.50) X10*6/uL Hgb 12.1 (12.0-16.0) g/dl Hct 36.6 L (37.0-47.0) % MCV 82.2 (80.0-98.0) fL MCH 27.2 (27.0-33.0) pg MCHC 33.1 (31.0-35.0) g/dl RDW 13.7 (11.0-16.0) % Plt Count 240 (160-400) X10*3/uL MPV 10.3 (9.4-12.3) fL Immature Gran % (Auto) 0.5 H (0.0-0.4) % Neut % (Auto) 71.6 (45-73) % Lymph % (Auto) 15.7 L (20-40) % [place] % (Auto) 11.2 H (2-11) % Eos % (Auto) 0.8 (0-4) % Baso % (Auto) 0.2 (0-2) % Lymph # (Auto) 1.5 (1.2-4.9) X10*3/uL [place] # (Auto) 1.0 (0.1-1.2) X10*3/uL Eos # (Auto) 0.1 (0.0-0.4) X10*3/uL Baso # (Auto) 0.0 (0.0-0.2) X10*3/uL Abs Immat Gran (auto) 0.05 H (0.00-0.03) X10*3/uL Absolute Neuts (auto) 6.6 (2.0-8.3) x10*3/uL Absolute Nucleated RBC 0.000 (0.0-0.012) X10*3/uL Nucleated RBC % (auto) 0.0 (0.0-0.2) /100WBC Sodium 139 (135-145) mmol/L Potassium 4.3 (3.3-5.1) mmol/L Chloride 107 (96-108) mmol/L Carbon Dioxide 23 (22-29) mmol/L Anion Gap 13 (12-20) BUN 11 (9-16) mg/dL Creatinine 0.87 (0.5-1.4) mg/dL Estim Creat Clear Calc 113.7 Estimated GFR > 60 Random Glucose 116 H (60-115) mg/dL Calcium 9.4 (8.4-10.2) mg/dL Troponin I High Sens < 2.7 (<3.5-17.0) ng/L Beta HCG, Quant < 2 mIU/mL COVID-19 (RYDER) Negative (Negative) COVID-19 Clin Com See Note Independent Interpretation I performed an independent interpretation of an: EKG Interpretation: Rate: 77 Rhythm:? Normal sinus rhythm Normal P waves.? Normal HANNA.?? Normal QRS complex.?? ST T wave :??No ST elevation, no ST depression. T-wave inversion lead III, aVR, V1 as seen on prior qTC: 409 prior studies:? 12/31/2023; no acute changes The study has been interpreted contemporaneously by me. External Record Review External record reviewed: Outpatient record Discharge Plan Discharge Clinical Impression: Syncope Patient Disposition: Home, Self-Care Instructions: Syncope (ED) Prescriptions: No Action fluconazole 150 mg tablet 150 mg PO Q3D Qty: 1 0RF Rx Instructions: Take on 01/03/2024 doxycycline hyclate 100 mg tablet 100 mg PO BID 7 Days Qty: 14 0RF metronidazole 500 mg tablet 500 mg PO BID 7 Days Qty: 14 0RF Referrals: Physician,Unknown J [Primary Care Provider] - Print Language: Bulgarian
[2024-01-03 12:23] VITALS: BP 107/68; PULSE 84; RESP 16; TEMP 36.5; O2SAT 98
[2024-01-03 12:27] VITALS: BP 107/68; PULSE 84
[2024-01-03 12:28] VITALS: BP 120/84; PULSE 94
[2024-01-03 12:29] VITALS: BP 108/70; PULSE 84
[2024-01-03 13:06] LABS: Troponin-I High Sensitivity < 2.7 ng/L (<3.5-17.0)
[2024-01-03 13:12] LABS: HCG Quantitative < 2 mIU/mL
[2024-01-03 13:41] VITALS: BP 108/70; PULSE 84; RESP 18; TEMP 36.7; O2SAT 98
== END 2024-01-03 13:42 | disposition home or self-care (01) ==
PROVIDERS: Nurse Practitioner Family; Emergency Provider Emergency Medicine
DX: R55 Syncope and collapse (principal); Z11.52 Encounter for screening for COVID-19; N73.0 Acute parametritis and pelvic cellulitis; N85.8 Other specified noninflammatory disorders of uterus; Z79.899 Other long term (current) drug therapy
CPT/HCPCS: 80048; 84484; 84702; 85025; 87635; 93005; 99284

== ENCOUNTER 2024-01-07 12:55 | Outpatient (AMB) | payer OTHER, SELFPAY ==
--- NOTE | 2024-01-07 13:00 | A.OFFVIS_ITS ---
Vital Signs 01/07/24 13:03 Height 5 ft 8 in Weight 200 lb BMI 30.4 BP 108/74 Intake Visit Reasons: ER follow up Medical Records Manager Required: No Information Interpreted: non-clinical & clinical Accompanied by: Self / Same As Patient Allergies No Known Allergies Allergy (Verified 01/07/24 13:04) Is last menstrual period known: Yes Last menstrual period: 01/02/24 HPI Comments Details: Presenting 1 week follow-up from emergency room. The patient went to the ER on 01/01 with abdominal pelvic pain. The following workup was done: H&H, chemistry, urine test negative. GC/CT, BV panel negative Pelvic ultrasound showed the following: The uterus is anteverted and measures 14.8 x 10.0 x 10.0 cm. 6.9 x 7.1 x 7.2 cm heterogeneous mass along the fundal aspect of the uterus. Endometrial thickness is 11 mm, although visualization of the endometrium is limited due to large fundal mass. Small amount of free fluid. Right ovary measures 3.1 x 2.9 x 1.4 cm, volume 6.5 mL and is unremarkable. Left ovary measures 3.1 x 2.5 x 2.1 cm, volume 8.9 mL. 1.7 x 1.3 x 1.7 cm complex left ovarian cyst, possibly a corpus luteum. No recent Pap smear done The patient was treated for PID with ceftriaxone 500 mg IM and was discharged on doxycycline 100 mg p.o. b.i.d. for 14 days with Flagyl 500 mg p.o. b.i.d. for 14 days . Since then the patient's pain has resolved completely PFSH Surgical History Hx of appendectomy Family History Mother HTN (hypertension) Social History Household Members: Family Alcohol intake: never Patient Tobacco Use Status: Never used Tobacco Current occupational status: unemployed Sexual orientation: Straight/Heterosexual Gender identity: Female Female Reproductive History Menstrual Age of Menarche: 12 Duration of menses: 3-5 days Date of last menstrual period: 01/02/24 Total pregnancies: 0 Review of Systems Const All systems reviewed & are unremarkable except as noted in HPI and below Physical Exam Vital Signs: BMI result Body Mass Index 30.4 General: Yes no CVA tenderness External Female Exam: normal external appearance and normal appearance of the urethra Speculum Exam - Vagina: normal appearance of the vagina, normal palpation, no lesions and no masses Speculum Exam - Cervix: normal appearance of the cervix, normal palpation, no lesions, no masses and nontender Bimanual exam- vagina & uterus: normal bimanual exam, normal palpation, uterine size normal, normal palpation, uterine shape normal, No Cervical tenderness present and non-tender Bimanual Exam- Adnexa, other: normal adnexae Back/Spine/Pelvis Back: no CVA tenderness Office Procedures Endometrial Biopsy Details: The patient was counseled regarding the indication and benefits of endometrial sampling to rule out endometrial pathology including not limited to endometrial hyperplasia or endometrial cancer and others; The alternatives (Either do nothing vs. hysteroscopy D&C) & the risks were discussed with the patient including but not limited: pain, uterine perforation, bleeding, infection, possible injury to bladder, bowel, ureter, possible need for blood transfusion w ith all its possible risks. The patient verbalized understanding all questions answered and signed consent. Urine test done in the office was negative The patient was placed into the dorsal lithotomy position; a speculum was inserted in the vagina. Using aseptic technique for the procedure, the cervix was cleansed with Betadine. The anterior lip of the cervix was grasped with a single tooth tenaculum. The uterus was sounded to 7 cm with a 4 mm Pipelle was used. Tissues samples were obtained and placed in formalin, in a patient labeled container and sent to the pathology department. At the end of the procedure, there was minimal bleeding noted The patient tolerated the procedure well and was discharged in good condition with the following instructions: Nothing in the vagina until the bleeding stops. No sex until the bleeding stops, to call if any of the following occurs: fever (>100.4), flu-like symptoms, abdominal pain, heavy bleeding, four smelling vaginal discharge. The patient was instructed to schedule a Follow up appointment in 2 weeks to discuss pathology results of the biopsy and treatment options. This note was generated with a voice recognition program. Some errors may have been overlooked during the review of this note. Sometimes these errors may affect the content or meaning of a given sentence. 35127-[id number] Biopsy Assessment & Plan Assessment & Plan (1) PID (acute pelvic inflammatory disease): Comment: Resolved Code(s): N73.0 - Acute parametritis and pelvic cellulitis Category: Medical Plan: Recommended for patient to complete her antibiotic course. Instructions given the patient to call in case of temperature over 100.4, nausea or vomiting, vaginal bleeding or recurrence of her pelvic pain (2) Uterine mass: Code(s): N85.8 - Other specified noninflammatory disorders of uterus Category: Medical Plan: Co testing done. Discussed with the patient the finding on ultrasound showing a 7.2 cm uterine mass, differential diagnosis include myoma, Nico sarcoma, other pathologies. Recommended endometrial biopsy and MRI of the pelvis. EMB done, see procedure note. MRI of the pelvis ordered. Instructions given the patient to schedule a 2 week follow-up appointment. All questions answered, the patient verbalized understanding. Orders: Orders Surgical Today N85.8 - Other specified noninflammatory disorders of uterus PAP rfx HPV E6/E7 and 16 18/45 Today N85.8 - Other specified noninflammatory disorders of uterus AMB Endometrial Biopsy Today N85.8 - Other specified noninflammatory disorders of uterus MR pelvis wo/w con Today N85.8 - Other specified noninflammatory disorders of uterus Coding Level of Care Code Est Pt Level 3 (48404) Procedure Only Diagnoses PID (acute pelvic inflammatory disease) N73.0 Uterine mass N85.8 CPT Codes Endometrial Biopsy - CPT: 22190-Xxvypyfziyl Biopsy ([id number])
[2024-01-07 13:03] VITALS: BP 108/74; BMI 30.4
== END 2024-01-07 13:56 | disposition home or self-care (01) ==
PROVIDERS: Visit Provider Obstetrics & Gynecology
DX: N73.0 Acute parametritis and pelvic cellulitis (principal); N85.8 Other specified noninflammatory disorders of uterus; Z32.02 Encounter for pregnancy test, result negative
CPT/HCPCS: 58100; 99213

== ENCOUNTER 2024-01-07 12:55 | Outpatient (REF) | payer OTHER, SELFPAY | END 2024-01-07 12:56 | disposition home or self-care (01) | LOC: HO.LNP 12:55 | PROVIDERS: Visit Provider Obstetrics & Gynecology | DX: N85.8 Other specified noninflammatory disorders of uterus (principal); Z32.02 Encounter for pregnancy test, result negative | CPT/HCPCS: 58100; 81025; 87625; 88175; 88305 ==

== ENCOUNTER 2024-01-29 15:51 | Outpatient (AMB) | payer OTHER, SELFPAY ==
[2024-01-29 16:05] VITALS: BMI 30.2
--- NOTE | 2024-01-29 16:05 | A.OFFVIS_ITS ---
Vital Signs 01/29/24 16:05 Height 5 ft 8 in Weight 198 lb 6.656 oz BMI 30.2 Intake Visit Reasons: EMB results Allergies No Known Allergies Allergy (Verified 01/07/24 13:04) HPI Comments Details: The patient is presenting after endometrial biopsy. The patient has no complaints, no vaginal bleeding, no feverishness chills or abdominal pain. The endometrial biopsy pathology report showed the following: Endometrium, biopsy: Benign endometrium with poorly-developed secretory glands and extensive glandular and stromal breakdown; no atypia or carcinoma. Comment: The findings do not explain a uterine mass and clinical correlation is necessary Pap smear was negative Pelvic ultrasound showed the following: The uterus is anteverted and measures 14.8 x 10.0 x 10.0 cm. 6.9 x 7.1 x 7.2 cm heterogeneous mass along the fundal aspect of the uterus. Endometrial thickness is 11 mm, although visualization of the endometrium is limited due to large fundal mass. Small amount of free fluid. Right ovary measures 3.1 x 2.9 x 1.4 cm, volume 6.5 mL and is unremarkable. Left ovary measures 3.1 x 2.5 x 2.1 cm, volume 8.9 mL. 1.7 x 1.3 x 1.7 cm complex left ovarian cyst, possibly a corpus luteum GC/CT negative Hepatitis B surface antigen, hepatitis-C antibody, HIV, RPR all negative H&H 12.6/36.6 HCG negative MRI of the pelvis not done yet [facility] Surgical History Hx of appendectomy Family History Mother HTN (hypertension) Social History Household Members: Family Alcohol intake: never Patient Tobacco Use Status: Never used Tobacco Current occupational status: unemployed Sexual orientation: Straight/Heterosexual Gender identity: Female Female Reproductive History Menstrual Age of Menarche: 12 Review of Systems Const All systems reviewed & are unremarkable except as noted in HPI and below Reports as per HPI and Reports no additional complaints GI Reports no additional complaints Reports no additional complaints Physical Exam Vital Signs: BMI result Body Mass Index 30.2 Assessment & Plan Assessment & Plan (1) Uterine mass: Code(s): N85.8 - Other specified noninflammatory disorders of uterus Category: Medical Plan: Discussed with the patient the results of the endometrial biopsy with its sensitivity, specificity, false-positive false-negative rate . Explained to the patient that the pathology of uterine mass is unknown yet and a negative endometrial biopsy rules out endometrial pathology but does not rule out any abnormal pathology with the uterine mass including myosarcoma. Recommended next step is a pelvic MRI will out suspicious features of myosarcoma and proceed with myomectomy. Given the patient has health insurance is from [place], the patient is planning to go back to her home country as soon as possible for further management. 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 All questions answered, the patient verbalized understanding Coding Level of Care Code Est Pt Level 3 (45183) Diagnoses Uterine mass N85.8
== END 2024-01-29 16:17 | disposition home or self-care (01) ==
PROVIDERS: Visit Provider Obstetrics & Gynecology
DX: N85.8 Other specified noninflammatory disorders of uterus (principal)
CPT/HCPCS: 99213

== ENCOUNTER → 2024-01-29 15:51 | Outpatient (BNVA) | payer OTHER, SELFPAY | PROVIDERS: Visit Provider Obstetrics & Gynecology ==